=== PATIENT | male | born 1965 | race Hispanic/Latino ===

== ENCOUNTER 2018-01-04 12:46 | Inpatient (IN) | payer OTHER ==
[2018-01-04] MEDS ORDERED: VANCOMYCIN 500 MG in NA CHLORIDE 0.9% 100 ML IVPB ONE (14:00)
[2018-01-04 14:17] LABS: Absolute Monocytes 0.4 K/uL (0.1-1.3); Absolute Neutrophil 4.6 K/uL (1.8-8.0); Basophils % 0.8 % (0-1.3); Eosinophils % 0.5 % (0-4.4); Hematocrit 35.8 % (39.6-49.0); Lymphocytes % 16.3 % (15.3-44.8); MCV 66.5 fL (80-100); MPV 8.7 fL (7.6-11.3); Monocytes % 7.1 % (3.3-12.3); RBC Red Blood Cell Count 5.39 M/uL (4.33-5.43)
--- NOTE | 2018-01-04 14:18 | RAD REPORT ---
EXAM DESCRIPTION: US - Extremity Nonvascular Limited - 01/04/2018 2:10 pm CLINICAL HISTORY: Pain;Swelling COMPARISON: No comparisons TECHNIQUE: Real-time sonographic evaluation of the area of interest was performed. FINDINGS: Left posterior elbow soft tissue ultrasound was performed. Significant subcutaneous edema is present in the region. No abscess is identified.
[2018-01-04 14:31] LABS: Potassium 3.6 mmol/L (3.5-5.1)
--- NOTE | 2018-01-04 14:50 | EDPHYS ---
Physician Documentation [facility] Name: Tai Aguirre Age: 52 yrs Sex: Male : 1965 Arrival Date: 01/04/2018 Time: 12:49 Bed 24 Private MD: ED Physician Moe Akins HPI: 01/04 14:51 This 52 yrs old Male presents to ER via Ambulatory with complaints of Elbow snw Swelling. 14:51 Onset: The symptoms/episode began/occurred suddenly, 2 day(s) ago, and became worse and snw became persistent. Associated signs and symptoms: The patient has no apparent associated signs or symptoms, Pertinent negatives: fever. Modifying factors: the patient symptoms are aggravated by movement. The patient has not experienced similar symptoms in the past. The patient has not recently seen a physician. Historical: - Allergies: 12:52 Clindamycin; sv - PMHx: 12:52 Diabetes - IDDM; Hypertension; sv - PSHx: 12:52 None; sv - Immunization history:: Adult Immunizations up to date. - Social history:: Smoking status: Patient/guardian denies using tobacco. - Ebola Screening: : No symptoms or risks identified at this time. ROS: 14:50 Constitutional: Negative for fever, chills, and weight loss, Eyes: Negative for injury, snw pain, redness, and discharge, ENT: Negative for injury, pain, and discharge, Neck: Negative for injury, pain, and swelling, Cardiovascular: Negative for chest pain, palpitations, and edema, Respiratory: Negative for shortness of breath, cough, wheezing, and pleuritic chest pain, Abdomen/GI: Negative for abdominal pain, nausea, vomiting, diarrhea, and constipation, Back: Negative for injury and pain, : Negative for injury, bleeding, discharge, and swelling, Neuro: Negative for headache, weakness, numbness, tingling, and seizure, Psych: Negative for depression, anxiety, suicide ideation, homicidal ideation, and hallucinations. 14:50 Skin: Positive for erythema, swelling, tenderness over posterior left elbow. Exam: 14:49 Constitutional: This is a well developed, well nourished patient who is awake, alert, snw and in no acute distress. Head/Face: Normocephalic, atraumatic. Eyes: Pupils equal round and reactive to light, extra-ocular motions intact. Lids and lashes normal. Conjunctiva and sclera are non-icteric and not injected. Cornea within normal limits. Periorbital areas with no swelling, redness, or edema. ENT: Nares patent. No nasal discharge, no septal abnormalities noted. Tympanic membranes are normal and external auditory canals are clear. Oropharynx with no redness, swelling, or masses, exudates, or evidence of obstruction, uvula midline. Mucous membranes moist. Neck: Trachea midline, no thyromegaly or masses palpated, and no cervical lymphadenopathy. Supple, full range of motion without nuchal rigidity, or vertebral point tenderness. No Meningismus. Chest/axilla: Normal chest wall appearance and motion. Nontender with no deformity. No lesions are appreciated. Cardiovascular: Regular rate and rhythm with a normal S1 and S2. No gallops, murmurs, or rubs. Normal PMI, no JVD. No pulse deficits. Respiratory: Lungs have equal breath sounds bilaterally, clear to auscultation and percussion. No rales, rhonchi or wheezes noted. No increased work of breathing, no retractions or nasal flaring. Abdomen/GI: Soft, non-tender, with normal bowel sounds. No distension or tympany. No guarding or rebound. No evidence of tenderness throughout. Back: No spinal tenderness. No costovertebral tenderness. Full range of motion. Neuro: Awake and alert, GCS 15, oriented to person, place, time, and situation. Cranial nerves II-XII grossly intact. Motor strength 5/5 in all extremities. Sensory grossly intact. Cerebellar exam normal. Normal gait. Psych: Awake, alert, with orientation to person, place and time. Behavior, mood, and affect are within normal limits. 14:49 Skin: Appearance: normal except for affected area, cellulitis, that is moderate, induration, that is mild is noted, located on the left elbow. Vital Signs: 12:52 BP 135 / 86; Pulse 99; Resp 18; Temp 99.7; Pulse Ox 99% ; Weight 75.3 kg; Height 5 ft. sv 6 in. (167.64 cm); Pain 8/10; 13:03 BP 128 / 78; Pulse 96; Resp 17; Temp 98.6(O); Pulse Ox 100% on R/A; mh5 13:54 BP 128 / 78; Pulse 82; Resp 18; Pulse Ox 99% on R/A; Pain 8/10; ed1 14:42 BP 130 / 90; Pulse 80; Resp 17; Pulse Ox 99% on R/A; mh5 17:14 BP 130 / 78; Pulse 79; Resp 18; Temp 97.3(O); Pulse Ox 100% on R/A; Pain 3/10; ed1 12:52 Body Mass Index 26.79 (75.30 kg, 167.64 cm) sv MDM: 12:54 Patient medically screened. snw 14:44 Data reviewed: vital signs, nurses notes, lab test result(s). Data interpreted: Pulse snw oximetry: on room air is 99 %. Interpretation: normal. Counseling: I had a detailed discussion with the patient and/or guardian regarding: the historical points, exam findings, and any diagnostic results supporting the discharge/admit diagnosis, the presence of at least one elevated blood pressure reading (>120/80) during this emergency department visit, lab results, radiology results, the need for further work-up and treatment in the hospital. Physician consultation: Dwayne Wong MD was called at 14:46, was contacted at 14:46, regarding admission, to the medical/surgical unit. Special discussion:. 01/04 13:33 Order name: CBC with Diff; Complete Time: 15:07 snw 08 13:33 Order name: Chem 7; Complete Time: 14:37 snw 01/04 13:33 Order name: ESR; Complete Time: 15:07 snw 01/04 13:33 Order name: Blood Culture Adult (2) snw 01/04 14:22 Order name: CBC Smear Scan; Complete Time: 15:07 EDMS 01/04 15:10 Order name: Vancomycin Level Trough EDMS 01/04 13:33 Order name: US Extrmty Nonvasular Limited; Complete Time: 14:20 snw 01/04 17:23 Order name: Hemoglobin A1c; Complete Time: 17:25 EDMS Administered Medications: Discontinued: vancoMYCIN 500 mg IVPB once over 1 hrs 14:12 Drug: vancoMYCIN 500 mg Route: IVPB; Infused Over: 1 hrs; Site: right antecubital; ed1 15:03 Follow up: Response: No adverse reaction; IV Status: Order to discontinue infusion; IV ed1 Intake: 76.1ml 15:04 Drug: NS 0.9% 1000 ml Route: IV; Rate: 1 bolus; Site: right antecubital; ed1 17:27 Follow up: IV Status: Completed infusion; IV Intake: 1000ml ed1 15:06 Drug: Insulin Regular Human 10 units {Co-Signature: ed1 (Zoe Stone TOOL CLERK).} Route: IVP; ss Site: right antecubital; 15:43 Follow up: Response: No adverse reaction; Blood sugar is lowered ed1 15:06 Drug: Doxycycline 100 mg Route: PO; ss 15:43 Follow up: Response: No adverse reaction ed1 15:06 Drug: fentaNYL (PF) 50 mcg Route: IVP; Site: right antecubital; ss 15:42 Follow up: Response: No adverse reaction; Pain is decreased ed1 15:56 Drug: vancoMYCIN 1 grams Route: IVPB; Infused Over: 2 hrs; Site: right antecubital; ed1 17:27 Follow up: Response: No adverse reaction; IV Status: Completed infusion; IV Intake: ed1 250ml Point of Care Testing: Blood Glucose: 15:42 Blood Glucose: 234 mg/dL; ed1 Ranges: Critical Glucose Levels:Adult <50 mg/dl or >400 mg/dl <40 mg/dl or >180 mg/dl Disposition: 01/05 10:36 Co-signature as Attending Physician, Moe Akins MD I agree with the assessment and kdr plan of care. Disposition: 01/04/18 14:49 Hospitalization ordered by Dwayne Wong for Inpatient Admission. Preliminary diagnosis are Cellulitis of left upper limb, Diabetes mellitus due to underlying condition with hyperglycemia. - Bed requested for Telemetry/MedSurg (Inpatient). - Status is Inpatient Admission. ed1 - Condition is Stable. - Problem is new. - Symptoms are unchanged. UTI on Admission? No Signatures: Dispatcher [employer] EDMS Maryse Boyce RN Jacqueline Guerra RN RN dw Rittger, Kevin, MD MD kdr Therrien, Shelly, PASTE WORKER-C PASTE WORKER-Roryw Marina Patel RN RN ss Chase, Zoe, TOOL CLERK TOOL CLERK ed1 Zoe Stone TOOL CLERK ed1 Corrections: (The following items were deleted from the chart) 01/04 16:46 14:49 Hospitalization Ordered by Dwayne Wong MD for Inpatient Admission. Preliminary dw diagnosis is Cellulitis of left upper limb; Diabetes mellitus due to underlying condition with hyperglycemia. Bed requested for Telemetry/MedSurg (Inpatient). Status is Inpatient Admission. Condition is Stable. Problem is new. Symptoms are unchanged. UTI on Admission? No. snw 17:28 16:46 01/04/2018 14:49 Hospitalization Ordered by Dwayne Wong MD for Inpatient ed1 Admission. Preliminary diagnosis is Cellulitis of left upper limb; Diabetes mellitus due to underlying condition with hyperglycemia. Bed requested for Telemetry/MedSurg (Inpatient). Status is Inpatient Admission. Condition is Stable. Problem is new. Symptoms are unchanged. UTI on Admission? No. dw
--- NOTE | 2018-01-04 14:50 | ER ---
Nurse's Notes [facility] Name: Tai Aguirre Age: 52 yrs Sex: Male : 1965 Arrival Date: 01/04/2018 Time: 12:49 Bed 24 Private MD: Diagnosis: Cellulitis of left upper limb;Diabetes mellitus due to underlying condition with hyperglycemia Presentation: 01/04 12:51 Presenting complaint: Patient states: left elbow pain, swelling and redness x 2 days. sv Transition of care: patient was not received from another setting of care. Onset of symptoms was January 02, 2018. Care prior to arrival: None. 12:51 Method Of Arrival: Ambulatory sv 12:51 Acuity: NATALIA 3 sv 12:54 Risk Assessment: Do you want to hurt yourself or someone else? Patient reports no ed1 desire to harm self or others. Initial Sepsis Screen: Does the patient meet any 2 criteria? No. Patient's initial sepsis screen is negative. Does the patient have a suspected source of infection? No. Patient's initial sepsis screen is negative. Historical: - Allergies: 12:52 Clindamycin; sv - PMHx: 12:52 Diabetes - IDDM; Hypertension; sv - PSHx: 12:52 None; sv - Immunization history:: Adult Immunizations up to date. - Social history:: Smoking status: Patient/guardian denies using tobacco. - Ebola Screening: : No symptoms or risks identified at this time. Screenin:54 Abuse screen: Denies threats or abuse. Denies injuries from another. Nutritional ed1 screening: No deficits noted. Tuberculosis screening: No symptoms or risk factors identified. Fall Risk None identified. Assessment: 12:54 General: Appears in no apparent distress. Behavior is calm, cooperative. Pain: ed1 Complains of pain in left elbow Pain does not radiate. Pain currently is 8 out of 10 on a pain scale. Quality of pain is described as aching, throbbing, Pain began 2-3 days ago. Is continuous, Current management - is no interventions. Neuro: Level of Consciousness is awake, alert, obeys commands, Oriented to person, place, time, situation. Cardiovascular: Denies chest pain, Heart tones S1 S2 present. Respiratory: Airway is patent Respiratory effort is even, unlabored, Respiratory pattern is regular, symmetrical, Breath sounds are clear bilaterally. GI: No signs and/or symptoms were reported involving the gastrointestinal system. : No signs and/or symptoms were reported regarding the genitourinary system. EENT: No signs and/or symptoms were reported regarding the EENT system. Derm: Skin is pink, warm \T\ dry. Musculoskeletal: Circulation, motion, and sensation intact. Capillary refill < 3 seconds, in bilateral fingers. Range of motion: limited in left elbow Swelling present in left elbow. 12:56 General: The previous assessment is accurate. Call light remains within reach. . ss 13:54 Reassessment: Patient appears in no apparent distress at this time. No changes from ed1 previously documented assessment. Patient and/or family updated on plan of care and expected duration. Pain level reassessed. Patient is alert, oriented x 3, equal unlabored respirations, skin warm/dry/pink. Patient states symptoms have not improved. Vital Signs: 12:52 BP 135 / 86; Pulse 99; Resp 18; Temp 99.7; Pulse Ox 99% ; Weight 75.3 kg; Height 5 ft. sv 6 in. (167.64 cm); Pain 8/10; 13:03 BP 128 / 78; Pulse 96; Resp 17; Temp 98.6(O); Pulse Ox 100% on R/A; mh5 13:54 BP 128 / 78; Pulse 82; Resp 18; Pulse Ox 99% on R/A; Pain 8/10; ed1 14:42 BP 130 / 90; Pulse 80; Resp 17; Pulse Ox 99% on R/A; mh5 17:14 BP 130 / 78; Pulse 79; Resp 18; Temp 97.3(O); Pulse Ox 100% on R/A; Pain 3/10; ed1 12:52 Body Mass Index 26.79 (75.30 kg, 167.64 cm) sv ED Course: 12:49 Patient arrived in ED. as 12:51 Triage completed. sv 12:52 Arm band placed on right wrist. sv 12:54 [facility] Over[facility] FNP-C [facility]. snw 12:54 Moe Akins MD is Attending Physician. snw 12:54 Zoe Stone LVN is Primary Nurse. ed1 12:54 Awaiting ED provider evaluation. ed1 12:54 Patient has correct armband on for positive identification. Bed in low position. Call ed1 light in reach. 13:05 Pulse ox on. NIBP on. mh5 13:49 Initial lab(s) drawn, by me, sent to lab. First set of blood cultures drawn by me. ed1 Inserted saline lock: 20 gauge in right antecubital area, using aseptic technique. Blood collected. 14:02 Patient taken to ultrasound. via wheelchair. hr 14:11 US Extrmty Nonvasular Limited In Process Unspecified. EDMS 14:12 Second set of blood cultures drawn by me. ed1 14:35 Notified Nurse Practitioner and/or Physician Lining Sewer of a critical lab result(s), aj1 Glucose 487. 14:46 Dwayne Wong MD is Hospitalizing Provider. snw 15:56 Awaiting bed assignment. ed1 17:02 Body fluid aspiration. ed1 17:26 Patient admitted, IV remains in place. intact, No redness/swelling at site. ed1 Administered Medications: Discontinued: vancoMYCIN 500 mg IVPB once over 1 hrs 14:12 Drug: vancoMYCIN 500 mg Route: IVPB; Infused Over: 1 hrs; Site: right antecubital; ed1 15:03 Follow up: Response: No adverse reaction; IV Status: Order to discontinue infusion; IV ed1 Intake: 76.1ml 15:04 Drug: NS 0.9% 1000 ml Route: IV; Rate: 1 bolus; Site: right antecubital; ed1 17:27 Follow up: IV Status: Completed infusion; IV Intake: 1000ml ed1 15:06 Drug: Insulin Regular Human 10 units {Co-Signature: ed1 (Zoe Stone LVN).} Route: IVP; ss Site: right antecubital; 15:43 Follow up: Response: No adverse reaction; Blood sugar is lowered ed1 15:06 Drug: Doxycycline 100 mg Route: PO; ss 15:43 Follow up: Response: No adverse reaction ed1 15:06 Drug: fentaNYL (PF) 50 mcg Route: IVP; Site: right antecubital; ss 15:42 Follow up: Response: No adverse reaction; Pain is decreased ed1 15:56 Drug: vancoMYCIN 1 grams Route: IVPB; Infused Over: 2 hrs; Site: right antecubital; ed1 17:27 Follow up: Response: No adverse reaction; IV Status: Completed infusion; IV Intake: ed1 250ml Point of Care Testing: Blood Glucose: 15:42 Blood Glucose: 234 mg/dL; ed1 Ranges: Intake: 15:03 IV: 76ml; Total: 76ml. ed1 17:27 IV: 250ml; Total: 326ml. ed1 17:27 IV: 1000ml; Total: 1326ml. ed1 Outcome: 14:49 Decision to Hospitalize by Provider. snw 17:26 Admitted to Med/surg accompanied by tech, family with patient, via wheelchair, room ed1 207, with chart, Report called to GANESH Pelaez 17:26 Condition: stable 17:26 Discharge instructions given to patient, Instructed on the need for admit, Demonstrated understanding of instructions. 17:28 Patient left the ED. ed1 Signatures: Dispatcher [employer] EDMS Shraddha Garcia RN RN aj1 Maryse Boyce RN RN sv Rosa Overton, GEOLOGICAL SCOUT-C GEOLOGICAL SCOUT-Csnw La Nena Savage Amelia as Smirch, Shelby, Zoe Watson RN, INVESTIGATOR INTERNAL AFFAIRS INVESTIGATOR INTERNAL AFFAIRS ed1 Mahi [facility] Zoe Stone INVESTIGATOR INTERNAL AFFAIRS ed1 Corrections: (The following items were deleted from the chart) 14:12 14:12 Second set of blood cultures drawn ed1 ed1
[2018-01-04] MEDS ORDERED: INSULIN -REGULAR HUMAN 50 UNIT/0.5 ML ML ONE (14:59)
[2018-01-04] MEDS ORDERED: DOXYCYCLINE 100 MG CAP PO ONE (15:00)
[2018-01-04] MEDS ORDERED: NA CHLORIDE 0.9% 1,000 ML ONE (15:00)
[2018-01-04] MEDS ORDERED: FENTANYL CITR 100 MCG/2 ML ONE (15:00)
[2018-01-04 15:02] LABS: Platelet Estimate ADEQ; Urine White Blood Cell Casts OK
[2018-01-04 15:03] LABS: Blood Morphology Comment NOTED (NOT SEEN); Hypochromasia 1+; Stomatocytes 1+
[2018-01-04] MEDS ORDERED: ONDANSETRON 4 MG/2 ML VIAL IV PRN (15:14)
[2018-01-04] MEDS ORDERED: VANCOMYCIN/NS 1 gm 1 GM/250 ML BAG IV ONE (16:00)
[2018-01-04] MEDS ORDERED: BUPIVACAINE 0.5% PF 10 ML VIAL ONE (16:33)
[2018-01-04] MEDS: NA CHLORIDE 0.9% 1,000 ML IV SCH (17:48)
[2018-01-04] MEDS: INSULIN -REGULAR HUMAN 50 UNIT/0.5 ML ML SQ SCH ×2 (17:48→20:44)
[2018-01-04] MEDS: ACETAMINOPHEN 500 MG TAB PO PRN ×2 (17:49→22:59)
[2018-01-04] MEDS: ENOXAPARIN 40 MG/0.4 ML SQ SCH (17:49)
[2018-01-04] MEDS: PIPER/TAZO/NS 3.375gm 3.375 GM/100 ML BAG IVPB SCH (17:55)
[2018-01-04 19:23] LABS: Urine Appearance CLEAR; Urine Bilirubin NEGATIVE (NEG); Urine Blood NEGATIVE (NEG); Urine Color YELLOW; Urine Glucose 3+ (NEG); Urine Protein NEGATIVE (NEG)
[2018-01-04 19:30] LABS: Urine Microscopic Reflex NO UMIC
[2018-01-04] MEDS ORDERED: VANCOMYCIN 1GM/D5W 200 ML IV SCH (21:00)
[2018-01-04] MEDS: MORPHINE 2 MG/ML SYR IV PRN (22:56)
--- NOTE | 2018-01-05 00:46 | HP ---
Date of Admission: 01/04/2018 Chief Complaint: Elbow redness on the left. Primary Care Physician: Dr. Curt Salgado. Consultants: Dr. Villela with Orthopedics. History Of Present Illness: The patient is a 52-year-old male with past medical history of diabetes, hypertension, and hyperlipidemia, who comes in with a 2-day episode of redness and swelling of the l eft elbow after cleaning his garage and possible insect bite. The patient states that he had some re dness and subjective fever and some chills. No nausea, vomiting, chest pain, shortness of breath. T he patient's symptoms are constant, moderate, progressively worsening. Comes into the ER for further evaluation. Upon arrival, he had a normal white count. Glucose level was elevated at 47. The ruben ent was started on IV antibiotics and referred for admission. Extremity ultrasound was done, which s howed some swelling, but no abscess. Past Medical History: Hypertension, hyperlipidemia, and diabetes. Past Surgical History: None. Social History: The patient denies any tobacco use. Does drink alcohol occasionally. No illicit dr ug use. The patient is currently employed. Family History: Positive for diabetes and congestive heart failure. Allergies: TO CLINDAMYCIN, CAUSES RASH. Review of Systems: An 11-point systems reviewed, negative except as per HPI. Physical Examination: Vital Signs: Blood pressure 135/86, pulse 99, respirations 18, temperature 99.7, O2 100% on room air . General: Awake, alert, oriented x3. Some mild distress. HEENT: Normocephalic, atraumatic. PERRLA, EOMI. Moist mucous membranes. Oropharynx is clear. Nor mal dentition. Conjunctivae anicteric. Neck: Supple. No JVD. Trachea midline. CV: S1, S2. No murmurs. Regular rate and rhythm. Peripheral pulses present bilaterally. Respiratory: Clear to auscultation bilaterally. No wheezing. No stridor. No use of accessory musc les. Gastrointestinal: Abdomen is soft, nontender, nondistended. Positive bowel sounds. No guarding or rigidity. Extremities: No clubbing, cyanosis. Edema in the left elbow. Skin: The patient has erythema of the left elbow and some surrounding swelling. Neuro: Cranial nerves 2 through 12 intact grossly. No neurological deficit. Speech is normal. Str ength is 5/5 bilateral upper and lower extremities. Psych: Mood is okay. Affect is full. Insight and judgment are good. Laboratory Data: Sodium 131, potassium 3.6, chloride 95, CO2 27, BUN 19, creatinine 1.2, glucose 187 , calcium 8.7. WBC 6.1, H and H 11.3 and 35.8, platelets 271, neutrophils 75%. Ultrasound of the el bow shows left posterior elbow soft tissue edema, subcutaneous edema. No abscess. Assessment And Plan: A 52-year-old male with: 1.Left elbow cellulitis, rule out joint infection. Dr. Villela has been consulted. He will do bedsi de synovial fluid tap. Blood cultures have been sent out. We will start him on IV antibiotics and f ollow up on culture results. 2.Diabetes mellitus type 2, insulin requiring with hyperglycemia, uncontrolled. We will obtain hemo globin A1c. The patient has received 10 units of insulin in the ER. His blood sugars have improved. We will continue sliding scale insulin and resume home medications. The patient states he has been out of his medications for the past 3 days. 3.Essential hypertension, stable. We will resume home medications as appropriate. 4.Hyperlipidemia. Continue statin. 5.Gastrointestinal and deep venous thrombosis prophylaxis with PPI and SCDs, and ambulation. Plan: Admit the patient to Med-Surg, place as inpatient. VALE Voice ID: [id number]
[2018-01-05] MEDS: PIPER/TAZO/NS 3.375gm 3.375 GM/100 ML BAG IVPB SCH ×3 (00:59→17:23)
[2018-01-05] MEDS: NA CHLORIDE 0.9% 1,000 ML IV SCH ×4 (00:59→23:31)
--- NOTE | 2018-01-05 02:11 | PREOPHP ---
Date of Admission: 01/04/2018 History Of Present Illness: This 52-year-old male, [id number] diabetic, presented with a 2-day history to the emergency room of having cellulitis on the posterior aspect of the left elbow. The patient denies the presence of any lesion or injury to the arm. He has no history of fever or chills and has had no treatment prior to presentation. Past Medical History: The patient has allergy to clindamycin. His medical illnesses include insulin-dependent diabetes mellitus, hypertension. No history of previous surgical treatment. The patient's immunizations are up to date. Social History: He denies using tobacco. Review of Systems: Noncontributory. Physical Examination: Vital Signs: Stable with blood pressure 130/78, pulse 80, respirations 18, temperature 97.3, pulse oximeter 100% on room air, body mass index 26.79. General: This is a well-nourished, well-developed 52-year-old male. HEENT: Within normal limits. Neck: Supple. Chest: Clear to auscultation. Heart: Regular rate and rhythm. Abdomen: Soft and nontender. Active bowel sounds are present. Genital: Deferred. Rectal: Deferred. Extremities: The left upper extremity has erythema and edema around the olecranon and somewhat wider extended into the anterior posterior forearm. A focal area of edema was palpated just radial to the olecranon. This area was prepped with chlorhexidine and alcohol. 3 mL of 0.5% Marcaine were injected into the subcutaneous tissue. Then, aspiration with the 10 cc syringe produced drops of fluid. This fluid was then placed in culturettes for both aerobic and anaerobic cultures and Gram stain. The patient had already been started on vancomycin 500 mg test dose at 1412 and then 1 g of vancomycin at 1556 and oral tablet of 100 mg doxycycline was given at 1543. The aspiration for culture and Gram stain was done at 1702. The patient's lab work showed a white blood cell count of 6.1, 75% neutrophils, hemoglobin was 11.3. Sodium was low at 131, glomerular filtration rate was 64. Glucose was 487. A1c was 10.6. Imaging: Ultrasound nonvascular was done of the posterior elbow and reported as showing significant subcutaneous edema present on left elbow posterior soft tissue. Assessment: Cellulitis, left elbow olecranon bursa and subcutaneous tissue. Plan: Aspiration was an attempt to identify pathogen of the pathogen involved even though antibiotics had already been given starting approximately 3 hours before consultation and aspiration for Gram stain and culture of body fluid. Recommendation is for continued antibiotic therapy as started as there is no focal area of fluid accumulation that would qualify for I&D effort at this time. The patient will be followed, assessing daily for collections of fluid that could be aspirated or treated with incision and drainage. CHRIS/FREEMAN Voice ID: [id number] [id number]
[2018-01-05] MEDS: MORPHINE 2 MG/ML SYR IV PRN ×4 (03:02→23:26)
[2018-01-05 05:00] LABS: Absolute Monocytes 0.6 K/uL (0.1-1.3); Absolute Neutrophil 5.3 K/uL (1.8-8.0); Basophils % 2.8 % (0-1.3); Hematocrit 33.6 % (39.6-49.0); Lymphocytes % 24.2 % (15.3-44.8); MCH 21.7 pg (27.0-35.0); MCV 66.7 fL (80-100); Monocytes % 7.8 % (3.3-12.3); RBC Red Blood Cell Count 5.04 M/uL (4.33-5.43)
[2018-01-05 05:22] LABS: Albumin 2.9 g/dL (3.4-5.0); Bilirubin Total 0.3 mg/dL (0.2-1.0); Potassium 3.5 mmol/L (3.5-5.1); Protein, Total 6.7 g/dL (6.4-8.2)
[2018-01-05] MEDS: INSULIN DETEMIR 100 UNIT/1 ML INSULIN SQ SCH ×2 (08:38→21:10)
[2018-01-05] MEDS: hydroCHLOROthiazide 12.5 MG CAP PO SCH ×2 (08:42→21:07)
[2018-01-05] MEDS: CARVEDILOL 12.5 MG TAB PO SCH ×2 (08:43→21:06)
[2018-01-05] MEDS: LISINOPRIL 20 MG TAB PO SCH ×2 (08:43→21:08)
[2018-01-05] MEDS: INSULIN -REGULAR HUMAN 50 UNIT/0.5 ML ML SQ SCH ×7 (08:55→21:09)
[2018-01-05] MEDS ORDERED: HOME MED 1 EA UNK (Lisinopril/Hydrochlorothiazide [Lisinopril-Hctz 20-12.5 Mg Tab] 1 EACH) PO SCH (09:00)
[2018-01-05] MEDS: VANCOMYCIN 1.5 GM in NA CHLORIDE 0.9% 500 ML IVPB SCH (11:32)
[2018-01-05] MEDS: HYDROCODONE/APAP 7.5/325 MG TAB PO PRN ×2 (11:34→21:07)
--- NOTE | 2018-01-05 13:13 | PN ---
Date of Progress Note: 01/05/2018 Subjective: The patient is seen and examined. Chart reviewed and case discussed with RN and Dr. Morrison son. The patient states he is doing about the same, still having some pain in his elbow. Redness, h owever, has improved. No fever or chills overnight. Review of Systems: Negative except as above. Medications: List reviewed. Physical Examination: Vital Signs: Temperature 97.2, heart rate 81, blood pressure 162/82, respirations 16, O2 100% on andrade m air. General: Awake, alert, oriented x3, in some mild distress due to pain. CV: S1, S2. Regular rate and rhythm. Peripheral pulses present. Respiratory: Moving air well bilaterally. No wheezing or stridor. No use of accessory muscles. Gastrointestinal: Abdomen is soft, nontender, nondistended. Positive bowel sounds. Extremities: No clubbing, cyanosis. Mild edema in the left upper extremity. Skin: The patient has erythema of the left elbow and surrounding area. Some induration, improving. Neurologic: Nonfocal. Laboratory Data: Sodium 134, potassium 3.5, chloride 98, CO2 28, BUN 19, creatinine 1.1, glucose 400 , calcium 7.9. Hemoglobin A1c 10.6%. WBC 8.2, H and H are 11 and 33.6, platelets 243. Body fluid G magen stain, no WBCs or organisms seen. Culture preliminarily shows 3+ staph-coagulase positive, likel y Staph aureus. Blood cultures are pending. Assessment And Plan: A 52-year-old male with: 1.Left elbow cellulitis with possible joint infection with Staph aureus. Sensitivity is pending. W e will continue on broad-spectrum IV antibiotics. Appreciate Dr. Villela's input. Blood cultures neg ative to date. 2.Diabetes mellitus type 2, insulin requiring with hyperglycemia, uncontrolled. Hemoglobin A1c is 1 0.6%. Continue home dose of insulin. Continue sliding scale. The patient has been out of his medic ations recently. We will refill on discharge. 3.Essential hypertension, stable. 4.Hyperlipidemia. Continue statin. 5.Gastrointestinal and deep venous thrombosis prophylaxis with PPI. We will add Lovenox when the pa tient at procedure yesterday. Plan: Follow up on cultures. /FREEMAN Voice ID: [id number] Report ID: [id number]
--- NOTE | 2018-01-05 15:05 | P.PN ---
Date of Service: 01/05/18 (HOSP DAY 1 HEADED FOR 2ND MN) S: PATIENT DECLARES PAIN ABOUT SAME YESTERDAY. GIVES ADDITIONAL HISTORY OF R GROIN ABSCESS AND RIGHT ELBOW ABSCESSES ALL WITH STAPH AUREUS REQUIRING I&Ds AND IV VANCOMYCIN. INDICATES DIRTY TATTOO NEEDLE STARTED PROBLEM YEARS AGO. O: PAIN 9, 2, 2, AND 8/10, AFEBRILE, VSS, WBC 8.2, 64%NEUT. GLUCOSE 234, 164 , 335, 400, 440, 366. BODY FLUID CULTURES 3+ STAPH COAGULASE POSITIVE, GRAM STAIN PENDING. EXAM OF RT. ARM SHOWS SAME CELLULITIS WITH WARMTH AND EDEMA LOCATIONS WITHOUT FLUID BALLOTMENT. PROM RUE 10* TO 115*, EQUAL TO AROM.
[2018-01-05] MEDS: ENOXAPARIN 40 MG/0.4 ML SQ SCH (17:23)
[2018-01-05] MEDS ORDERED: INSULIN GLARGINE 100 UNITS/ML SQ SCH (21:00)
[2018-01-05] MEDS: DOCUSATE NA 100 MG CAP PO SCH (21:07)
[2018-01-06] MEDS: PIPER/TAZO/NS 3.375gm 3.375 GM/100 ML BAG IVPB SCH ×3 (00:30→16:40)
[2018-01-06] MEDS: VANCOMYCIN 1.5 GM in NA CHLORIDE 0.9% 500 ML IVPB SCH ×2 (04:15→22:17)
[2018-01-06 05:02] LABS: Absolute Lymphocytes (CBC) 2.2 K/uL (0.7-4.9); Absolute Monocytes 0.6 K/uL (0.1-1.3); Absolute Neutrophil 3.7 K/uL (1.8-8.0); Basophils % 1.1 % (0-1.3); Eosinophils % 2.6 % (0-4.4); Hematocrit 31.6 % (39.6-49.0); Lymphocytes % 32.5 % (15.3-44.8); MCH 21.5 pg (27.0-35.0); MCV 66.6 fL (80-100); MPV 8.9 fL (7.6-11.3); Monocytes % 8.3 % (3.3-12.3); RBC Red Blood Cell Count 4.74 M/uL (4.33-5.43)
[2018-01-06 05:44] LABS: Albumin 2.6 g/dL (3.4-5.0); Bilirubin Total 0.2 mg/dL (0.2-1.0); Potassium 3.3 mmol/L (3.5-5.1); Protein, Total 6.2 g/dL (6.4-8.2)
[2018-01-06] MEDS: INSULIN -REGULAR HUMAN 50 UNIT/0.5 ML ML SQ SCH ×8 (07:30→21:19)
[2018-01-06] MEDS: NA CHLORIDE 0.9% 1,000 ML IV SCH ×2 (08:00→18:00)
[2018-01-06] MEDS: LISINOPRIL 20 MG TAB PO SCH ×2 (08:29→21:17)
[2018-01-06] MEDS: DOCUSATE NA 100 MG CAP PO SCH ×2 (08:29→21:18)
[2018-01-06] MEDS: CARVEDILOL 12.5 MG TAB PO SCH ×2 (08:30→21:18)
[2018-01-06] MEDS: hydroCHLOROthiazide 12.5 MG CAP PO SCH ×2 (08:31→21:17)
[2018-01-06] MEDS: INSULIN DETEMIR 100 UNIT/1 ML INSULIN SQ SCH ×2 (08:33→21:18)
[2018-01-06] MEDS: HYDROCODONE/APAP 7.5/325 MG TAB PO PRN ×2 (09:06→21:16)
--- NOTE | 2018-01-06 11:12 | P.PN ---
Date of Service: 01/06/18 S: PATIENT CONTINUES TO IMPROVE RANGE OF MOTION AND DECREASE EDEMA AND INFLAMMATION. O: PAIN 4, 4, 3, 8/10, AFEBRILE, VSS, WBC 6.6, 55%NEUT. GLUCOSE 202. BODY FLUID CULTURES 3+ STAPH COAGULASE POSITIVE, GRAM STAIN SHOWS 0-2 WBCs AND GRAM + COCCI IN CLUSTERS. STAPH AUREUS SENS TO ALL EXCEPT PEN & AMP. EXAM OF RT. ARM SHOWS DECREASED CELLULITIS WITHOUT WARMTH AND DECREASED EDEMA WITHOUT FLUID BALLOTMENT. ROM RUE 5* TO 125*.
--- NOTE | 2018-01-06 12:41 | PN ---
Subjective: Currently the patient is lying in bed. He looks comfortable but he continued to have le ft elbow pain with every movement. He think IV pain medication is wearing off fast. There were no f ever, no chills overnight. Review of Systems: Otherwise as below. Objective: Vital Signs: Blood pressure 126/68, respiratory rate 17, pulse 64, temp 97.1. General: The patient is alert and oriented x3. Does not look in any distress. HEENT: Atraumatic, normocephalic. PERRLA. Oral mucosa is moist. Neck: Supple. No JVD. No carotid bruits. Chest: Clear to auscultation. Good air entry. Heart: Regular rate and rhythm. S1, S2 normal. No gallop or murmur. Abdomen: Soft, nontender. No masses. No hepatosplenomegaly. Positive bowel sounds. Extremities: No clubbing, no cyanosis, or edema, neither in extremity today. Skin: Without erythema of the left elbow but slightly tender. Laboratory Data: Today showed CBC is normal except for hemoglobin 10.2. Chemistry was normal except for potassium 3.3. Glucose 186. Microbiology showed elbow culture positive for Staphylococcus reta us, which is sensitive to Bactrim, cefazolin, clindamycin. Assessment And Plan: 1.Left elbow cellulitis, joint infection with Staph aureus. Sensitivity showed no MRSA. The patien t was sensitive to clindamycin, cefazolin and Bactrim etc. Currently he is on IV antibiotic with Zos yn and vancomycin. We will continue IV antibiotics for 1 more day. As the patient continued to have pain, we will stop IV morphine and switch the patient to Toradol orally every 6 hours and hopefully tomorrow we will be able to discharge the patient home if his pain is well controlled, on 14 days of course of antibiotics. He will follow up with the Orthopedic as outpatient. 2.Type 2 diabetes mellitus. Still not well controlled. Hemoglobin A1c was 10.6, I will increase hi s morning dose of insulin from 25 to 30. 3.Hypertension, well controlled. 4.History of hyperlipidemia, on statin. 5.Gastrointestinal prophylaxis, deep venous thrombosis prophylaxis on Lovenox 40 once a day. 6.Pain not well controlled. We will switch him to Toradol orally. 7.Plan to discharge in a.m., hopefully pain well controlled. ANNAMARIA/FREEMAN Voice ID: [id number] Report ID: [id number]
[2018-01-06] MEDS: KETOROLAC 10 MG TAB PO PRN (12:47)
[2018-01-06] MEDS: ENOXAPARIN 40 MG/0.4 ML SQ SCH (16:41)
[2018-01-07] MEDS: PIPER/TAZO/NS 3.375gm 3.375 GM/100 ML BAG IVPB SCH ×2 (00:42→09:03)
[2018-01-07] MEDS: HYDROCODONE/APAP 7.5/325 MG TAB PO PRN (02:40)
[2018-01-07 05:23] LABS: Absolute Lymphocytes (CBC) 2.2 K/uL (0.7-4.9); Absolute Monocytes 0.5 K/uL (0.1-1.3); Absolute Neutrophil 3.3 K/uL (1.8-8.0); Basophils % 1.2 % (0-1.3); Eosinophils % 3.3 % (0-4.4); Hematocrit 32.1 % (39.6-49.0); Lymphocytes % 34.6 % (15.3-44.8); MCH 21.7 pg (27.0-35.0); MPV 8.6 fL (7.6-11.3); Monocytes % 7.9 % (3.3-12.3); RBC Red Blood Cell Count 4.85 M/uL (4.33-5.43)
[2018-01-07 05:25] LABS: MCV 66.2 fL (80-100)
[2018-01-07 05:41] LABS: Albumin 2.7 g/dL (3.4-5.0); Bilirubin Total 0.1 mg/dL (0.2-1.0); Potassium 3.4 mmol/L (3.5-5.1); Protein, Total 6.4 g/dL (6.4-8.2)
[2018-01-07] MEDS: NA CHLORIDE 0.9% 1,000 ML IV SCH (06:08)
[2018-01-07] MEDS: INSULIN -REGULAR HUMAN 50 UNIT/0.5 ML ML SQ SCH ×4 (07:30→11:30)
[2018-01-07] MEDS ORDERED: INSULIN DETEMIR 100 UNIT/1 ML INSULIN SQ SCH (08:00)
[2018-01-07] MEDS: KETOROLAC 10 MG TAB PO PRN (09:05)
[2018-01-07] MEDS: DOCUSATE NA 100 MG CAP PO SCH (09:07)
[2018-01-07] MEDS: hydroCHLOROthiazide 12.5 MG CAP PO SCH (09:12)
[2018-01-07] MEDS: LISINOPRIL 20 MG TAB PO SCH (09:13)
[2018-01-07] MEDS: CARVEDILOL 12.5 MG TAB PO SCH (09:14)
[2018-01-07] MEDS ORDERED: VANCOMYCIN 1.5 GM in NA CHLORIDE 0.9% 500 ML IVPB SCH (10:00)
--- NOTE | 2018-01-07 11:44 | P.PN ---
Date of Service: 01/07/18 S: PATIENT CONTINUES TO IMPROVE RANGE OF MOTION WITH DECREASED EDEMA AND INFLAMMATION. O: PAIN 5, 4, 8, 0/10, AFEBRILE, VSS, WBC 6.2, 53%NEUT. GLUCOSE 220. BODY FLUID CULTURES 3+ STAPH COAGULASE POSITIVE, GRAM STAIN SHOWS 0-2 WBCs AND GRAM + COCCI IN CLUSTERS. STAPH AUREUS SENS TO ALL EXCEPT PEN & AMP. EXAM OF RT. ARM SHOWS DECREASED EDEMA WITHOUT FLUID BALLOTMENT. ROM RUE 0* TO 130*. A: PATIENT MAKING PROGRESS DAILY. P: PATIENT TO BE DISCHARGED ON P.O. ABX TODAY. F/U IF DESIRED MY OFFICE IN 7- 10 D OR PRN INCREASING SYMPTOMS.
--- NOTE | 2018-01-07 16:43 | DS ---
Date of Discharge: 01/07/2018 Nurse Charge Rn: Dr. Villela. Procedure: Ultrasound of the left upper extremity, showed significant subcutaneous edema without abs cess, elbow joint aspiration. For history of present illness, please refer to Dr. Wong's note. Hospital Course: Initially, the patient presented with history of 2 days' of progressive redness and swelling of his left elbow after cleaning his crotch and reported insect bite. In the emergency andrade m, the patient was evaluated and found to have normal white blood cells. Doppler showed subcutaneous swelling, and Orthopedic consult requested. Dr. Villela did bedside synovial fluid tap. Blood cultu re done and was negative, but the fluid tap was positive for Staph aureus, coag-negative, +3. The venkatesh hanks was maintained on vancomycin while inpatient and was switched to Augmentin twice a day for 14 d ays upon discharge. His pain subsided with pain medications and today he is feeling much better. Dr Marisol Villela okay for the patient's discharge and followup with him in the office as outpatient. The cornel portillo was discharged in stable condition. He was maintained on his medications for diabetes and hyper tension while inpatient. Discharge Condition: Stable. Discharge Diet: 1800 ADA cardiac. Discharge Activity: As tolerated. Discharge Followup: Follow up with Dr. Villela in 1 week. Follow up with his primary care physician in 1 week. Physical Examination On Discharge: Vital Signs: Blood pressure is 110/62, respiratory rate 18, puls e 62, temperature 98.3. General: He is alert and oriented x3. Does not look in any distress. HEENT: Atraumatic, normocephalic. PERRLA. Oral mucosa is moist. Neck: Supple. No JVD. No carotid bruits. Chest: Clear to auscultation. Good air entry. Heart: Regular rate and rhythm. S1, S2 normal. No gallop. Abdomen: Soft, nontender. No masses. No hepatosplenomegaly. Positive bowel sounds. Obese. Extremities: No clubbing, cyanosis, or edema. Skin: Left elbow without much tenderness. No erythema. No swelling anymore. Medications At Discharge: Augmentin 875/125 one tablet twice a day; Toradol 10 mg as needed every 6 hours for pain; metformin 1000 mg twice a day; lisinopril/hydrochlorothiazide tablet combination, 1 t ablet twice a day; insulin glargine 25 units twice a day; insulin sliding scale before meals as befor e; Coreg 12.5 mg twice a day. ANNAMARIA/FREEMAN Voice ID: [id number] Report ID: [id number]
== END 2018-01-07 14:00 | disposition home or self-care (01) | DRG 549 ==
LOC: ER 12:46 → ERHOLD 15:15 → 2ND 17:20
PROVIDERS: ADMIT Family Medicine; ATTEND Internal Medicine
PROC: 0R9M3ZX Drainage of Left Elbow Joint, Percutaneous Approach, Diagnostic (ICD-10-PCS; principal; 2018-01-04)
DX: M00.022 Staphylococcal arthritis, left elbow (principal); L03.114 Cellulitis of left upper limb; E11.65 Type 2 diabetes mellitus with hyperglycemia; B95.61 Methicillin susceptible Staphylococcus aureus infection as the cause of diseases classified elsewhere; I10 Essential (primary) hypertension; E78.5 Hyperlipidemia, unspecified; Z79.4 Long term (current) use of insulin
CPT/HCPCS: 36415; 76882; 80048; 80053; 80202; 81003; 82962; 83036; 85025; 85652; 87040; 87070; 87075; 87077; 87186; 87205; 94760; 96361; 96365; 96366; 96375; 99285; J1650; J2270; J2405; J2543; J3010; J3370; J7030

== ENCOUNTER 2018-01-26 02:11 | Emergency (ER) | payer OTHER ==
[2018-01-26 02:51] LABS: Absolute Lymphocytes (CBC) 1.6 K/uL (0.7-4.9); Absolute Monocytes 0.4 K/uL (0.1-1.3); Basophils % 1.2 % (0-1.3); Eosinophils % 0.7 % (0-4.4); Hematocrit 34.4 % (39.6-49.0); MCH 21.6 pg (27.0-35.0); MPV 8.5 fL (7.6-11.3); Monocytes % 7.3 % (3.3-12.3); RBC Red Blood Cell Count 5.14 M/uL (4.33-5.43)
[2018-01-26 03:07] LABS: BUN Blood Urea Nitrogen 9 mg/dL (7-18); Bicarbonate 22 mmol/L (21-32); Glucose Level 208 mg/dL (74-106); Potassium 3.7 mmol/L (3.5-5.1); Sodium Level 140 mmol/L (136-145)
[2018-01-26 03:38] LABS: Urine Blood NEGATIVE (NEG); Urine Glucose 1+ (NEG); Urine Protein NEGATIVE (NEG); Urine Specific Gravity <1.005 (1.005-1.030)
[2018-01-26 03:41] LABS: Blood Morphology Comment NOTED (NOT SEEN); Hypochromasia 1+; Platelet Estimate ADEQ; Urine White Blood Cell Casts OK
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
== END 2018-01-26 04:31 | disposition left against medical advice (07) ==
LOC: ER 02:11
DX: S13.4XXA Sprain of ligaments of cervical spine, initial encounter (principal); S20.219A Contusion of unspecified front wall of thorax, initial encounter; S20.229A Contusion of unspecified back wall of thorax, initial encounter; V03.10XA Pedestrian on foot injured in collision with car, pick-up truck or van in traffic accident, initial encounter; Y93.01 Activity, walking, marching and hiking; Y92.89 Other specified places as the place of occurrence of the external cause
CPT/HCPCS: 36415; 70450; 71260; 72125; 74177; 80048; 81003; 85025; 99285; Q9967; 80076; 80307; 80320; 80329; 85610; 85730; 93005; 96360; J7030

== ENCOUNTER 2018-01-26 05:57 | Emergency (ER) | payer OTHER ==
[2018-01-26] MEDS ORDERED: ACT CHARCOAL/SORB 50 GM/240ML ONE (06:58)
[2018-01-26 07:10] LABS: Absolute Lymphocytes (CBC) 1.6 K/uL (0.7-4.9); Absolute Monocytes 0.3 K/uL (0.1-1.3); Absolute Neutrophil 2.5 K/uL (1.8-8.0); Eosinophils % 0.8 % (0-4.4); Hematocrit 35.6 % (39.6-49.0); MCH 21.1 pg (27.0-35.0); MCV 67.1 fL (80-100); MPV 8.6 fL (7.6-11.3); Monocytes % 7.1 % (3.3-12.3); RBC Red Blood Cell Count 5.31 M/uL (4.33-5.43)
[2018-01-26 07:19] LABS: Protime INR 1.17
[2018-01-26 07:23] LABS: Barbiturates NEGATIVE (NEGATIVE); Benzodiazepines NEGATIVE (NEGATIVE); Cocaine NEGATIVE (NEGATIVE); METHAMPHETAM NEGATIVE (NEGATIVE); Methadone NEGATIVE (NEGATIVE); Opiates NEGATIVE (NEGATIVE); Phencyclidine NEGATIVE (NEGATIVE); THC Cannibis NEGATIVE (NEGATIVE)
[2018-01-26 07:49] LABS: ALT/SGPT 20 U/L (12-78); AST/SGOT 16 U/L (15-37); Albumin 3.5 g/dL (3.4-5.0); Alkaline Phosphatase 75 U/L (45-117); BUN Blood Urea Nitrogen 9 mg/dL (7-18); Bicarbonate 25 mmol/L (21-32); Bilirubin Direct 0.1 mg/dL (0-0.2); Bilirubin Total 0.2 mg/dL (0.2-1.0); Glucose Level 189 mg/dL (74-106); Potassium 3.7 mmol/L (3.5-5.1); Protein, Total 7.4 g/dL (6.4-8.2); Sodium Level 139 mmol/L (136-145)
[2018-01-26 07:50] LABS: Alcohol Serum/Plasma 149 mg/dL (<3)
[2018-01-26] MEDS ORDERED: NA CHLORIDE 0.9% 1,000 ML ONE (08:05)
[2018-01-26 09:34] LABS: Urine Blood NEGATIVE (NEG); Urine Glucose 2+ (NEG); Urine Protein NEGATIVE (NEG); Urine pH 5.5 (5.0-7.0)
--- NOTE | 2018-01-26 14:19 | ER ---
Nurse's Notes [facility] Name: Tai Aguirre Age: 52 yrs Sex: Male : 1965 Arrival Date: 01/26/2018 Time: 05:59 Bed 19 Private MD: Diagnosis: Bipolar disorder;Adjustment disorder with depressed mood Presentation: 01/26 06:05 Presenting complaint: EMS states: Pt was seen at ED earlier, EMS reports they were ea called to pt's home due to possible OD. EMS reports they were called out by family member pt reported he took 5 tabs of trileptal. Transition of care: patient was not received from another setting of care. Onset of symptoms was January 26, 2018. Risk Assessment: Do you want to hurt yourself or someone else? Patient reports desire/thoughts of hurting themselves or someone else. Provider notified. Initial Sepsis Screen: Does the patient meet any 2 criteria? No. Patient's initial sepsis screen is negative. Does the patient have a suspected source of infection? No. Patient's initial sepsis screen is negative. Care prior to arrival: None. 06:05 Method Of Arrival: EMS: [facility] ea 06:05 Acuity: NATALIA 2 ea Triage Assessment: 06:11 General: Appears in no apparent distress. Behavior is calm. Pain: Complains of pain in ea anterior aspect of right lateral abdomen Pain does not radiate. Quality of pain is described as aching. Neuro: Level of Consciousness is awake, alert, obeys commands, Oriented to person, place, time, situation. Cardiovascular: Patient's skin is warm and dry. Respiratory: Airway is patent Respiratory effort is even, unlabored, Respiratory pattern is regular, symmetrical, Breath sounds are clear bilaterally. GI: Abdomen is non-distended. Derm: Skin is pink, warm \\T\\ dry. Historical: - Allergies: 06:11 Clindamycin; ea - Home Meds: 06:11 hydrochlorothiazide 25 mg Oral tab 1 tab 2 times per day for Hypertension [Active]; ea lisinopril Oral [Active]; Novolin N Sub-Q [Active]; Trileptal 600 mg oral tab 1 tab 2 times per day [Active]; - PMHx: 06:11 Diabetes - IDDM; Hypertension; ea - Immunization history:: Adult Immunizations up to date. - Social history:: Smoking status: Patient/guardian denies using tobacco. - Ebola Screening: : No symptoms or risks identified at this time. Screenin:14 Abuse screen: Denies threats or abuse. Nutritional screening: No deficits noted. ea Tuberculosis screening: No symptoms or risk factors identified. Fall Risk None identified. Assessment: 06:43 Reassessment: Edi from poison control notified of possible OD, acetaminophen, aspirin, ea UDS, IV fluids, pt may get charcoal, if seizures occur pt may get benzodiazepines. May discharge once labs are cleared if no other issues occur. 07:15 General: Appears in no apparent distress. comfortable, well developed, Behavior is sv calm, cooperative, appropriate for age. General: Denies suicidal ideation. Pt stated he doesn't recall how many pills he took. Pt stated "I just wanted to sleep." Pt denies any previous attempts at attempting suicide. Pt reports depression. Pain: Denies pain. Neuro: Level of Consciousness is awake, alert, obeys commands, Oriented to person, place, time, situation, Moves all extremities. Full function Speech is normal. Cardiovascular: Patient's skin is warm and dry. Respiratory: Respiratory effort is even, unlabored, Respiratory pattern is regular, symmetrical. GI: No signs and/or symptoms were reported involving the gastrointestinal system. : No signs and/or symptoms were reported regarding the genitourinary system. EENT: No signs and/or symptoms were reported regarding the EENT system. Derm: Skin is pink, warm \\T\\ dry. Musculoskeletal: No signs and/or symptoms reported regarding the musculoskeletal system. 07:30 Reassessment: Personal belongings given to security for lock up. sv 08:41 Reassessment: Patient appears in no apparent distress at this time. Patient and/or sv family updated on plan of care and expected duration. Pain level reassessed. Patient is alert, oriented x 3, equal unlabored respirations, skin warm/dry/pink. Pt given a food tray. 09:36 Reassessment: Patient appears in no apparent distress at this time. Patient and/or sv family updated on plan of care and expected duration. Pain level reassessed. Patient is alert, oriented x 3, equal unlabored respirations, skin warm/dry/pink. 10:49 Reassessment: Patient appears in no apparent distress at this time. No changes from la1 previously documented assessment. Patient and/or family updated on plan of care and expected duration. Pain level reassessed. Patient is alert, oriented x 3, equal unlabored respirations, skin warm/dry/pink. 13:28 Reassessment: Patient appears in no apparent distress at this time. No changes from la1 previously documented assessment. Patient and/or family updated on plan of care and expected duration. Pain level reassessed. Patient is alert, oriented x 3, equal unlabored respirations, skin warm/dry/pink. Psych: 06:09 Subjective: Patient's mood is sad. Objective: Patient is cooperative. Interventions: ea Searched person for dangerous items. Suicide Risk Assessment: Sad Person Scale: Sex of patient: Male: Score 1 point. Age of patient: Score 0 point if patient falls outside of specified age parameters. Depression: Score 1 point if signs of depression are present. Previous Attempt: Score 0 point if patient has not previously attempted suicide. Rational Thinking: Score 0 point if patient has rational thinking. Social Support: Score 1 point if social support is lacking and/or unavailable. Organized Plan: Score 0 if patient did not have an organized plan in place. Relationship: Score 1 point if patient is , , , or for a single male Chronic Sickness: Score 0 point if patient does not have a chronic illness, debilitating, or severe disorder. Safety Checks: Door is open. Pt denies substance abuse. 14:31 Commitment: Patient will be a voluntary commitment. la1 Vital Signs: 06:00 BP 129 / 82; Pulse 85; Resp 18; Temp 98.7; Pulse Ox 98% on R/A; oe 09:25 BP 133 / 64; Pulse 85; Resp 18; Pulse Ox 100% ; ms 12:20 BP 130 / 72; Pulse 82; Resp 15; Temp 98.2(O); Pulse Ox 98% on R/A; mh5 13:28 BP 143 / 74; Pulse 81; Resp 16; Pulse Ox 100% on R/A; la1 ED Course: 05:59 Patient arrived in ED. aa1 06:00 Patient placed in an exam room, on a stretcher. ea 06:05 Alma Sharma RN is Primary Nurse. ea 06:09 [facility]ona Delgado F[facility]-C [facility]. kb 06:09 Favian Case MD is Attending Physician. kb 06:09 Triage completed. ea 06:14 Patient has correct armband on for positive identification. Bed in low position. Call ea light in reach. Side rails up X 1. 06:53 Inserted saline lock: 20 gauge in right antecubital area, using aseptic technique. oe Blood collected. 07:00 Safety Checks: Personal items have been removed. The door is open or patient has been sv placed in a hallway bed/chair. There are no family/friend visitors at this time Sitter present at this time. 07:03 Primary Nurse role handed off by Alma Sharma, GANESH sv 07:03 Maryse Boyce, GANESH is Primary Nurse. sv 07:15 Safety Checks: Personal items have been removed. The door is open or patient has been sv placed in a hallway bed/chair. There are no family/friend visitors at this time Sitter present at this time. 07:20 Report given to Maryse ANDERSEN. ea 07:21 Safety checks: Sitter present: Yes. Safety checks: Items removed: yes. Door open/sign eb placed on door: yes. 07:36 Safety checks: Door open/sign placed on door: yes. Sitter present: Yes. eb 07:51 Safety checks: Door open/sign placed on door: yes. Sitter present: Yes. eb 08:05 Safety checks: Door open/sign placed on door: yes. Sitter present: Yes. eb 08:15 Safety checks: Door open/sign placed on door: yes. Sitter present: Yes. eb 08:30 Safety checks: Door open/sign placed on door: yes. Sitter present: Yes. eb 08:45 Safety checks: Door open/sign placed on door: yes. Sitter present: Yes. eb 08:45 Safety checks: Items removed: yes. Door open/sign placed on door: yes. Family/friend ms present: no. Sitter present: Yes. 09:00 Safety checks: Items removed: yes. Door open/sign placed on door: yes. Family/friend ms present: no. Sitter present: Yes. 09:15 Safety checks: Items removed: yes. Door open/sign placed on door: yes. Family/friend ms present: no. Sitter present: Yes. 09:25 Repeat lab(s) drawn. by me, sent to lab. ms 09:27 Warm blanket given. ms 09:30 Safety checks: Items removed: yes. Door open/sign placed on door: yes. Family/friend ms present: no. Sitter present:. 09:45 Safety checks: Items removed: yes. Door open/sign placed on door: yes. Family/friend ms present: no. Sitter present: Yes. 10:00 Safety checks: Items removed: yes. Door open/sign placed on door: yes. Family/friend ms present: no. Sitter present: Yes. 10:15 Safety checks: Items removed: yes. Door open/sign placed on door: yes. Family/friend ms present: no. Sitter present: Yes. 10:30 Safety checks: Items removed: yes. Door open/sign placed on door: yes. Family/friend ms present: no. Sitter present: Yes. 10:45 [facility] contacted to request patient screening. Rep: Bhumi. mb 10:45 Safety checks: Items removed: yes. Door open/sign placed on door: yes. Family/friend ms present: no. Sitter present: Yes. 11:00 Safety checks: Items removed: yes. Door open/sign placed on door: yes. Family/friend ms present: no. Sitter present: Yes. 11:15 Safety checks: Items removed: yes. Door open/sign placed on door: yes. Family/friend ms present: no. Sitter present: Yes. 11:30 Safety checks: Items removed: yes. Door open/sign placed on door: yes. Family/friend mh5 present: no. Sitter present: Yes. 11:45 Safety checks: Items removed: yes. Door open/sign placed on door: yes. Family/friend mh5 present: no. Sitter present: Yes. 12:00 Safety checks: Items removed: yes. Door open/sign placed on door: yes. Family/friend mh5 present: no. Sitter present: Yes. 12:15 Safety checks: Items removed: yes. Door open/sign placed on door: yes. Family/friend mh5 present: no. Sitter present: Yes. 12:18 Diet: Patient given a regular meal tray. mh5 12:29 Anote from [facility] verified that a customer care representative was en route to perform a patient mb4 screening. 12:30 Safety checks: Items removed: yes. Door open/sign placed on door: yes. Family/friend mh5 present: no. Sitter present: Yes. 12:45 Safety checks: Items removed: yes. Door open/sign placed on door: no. Family/friend jp3 present: no. Sitter present: Yes. 12:46 Door closed. Lights dimmed. Curtain remained open. jp3 13:00 Safety checks: Items removed: yes. Door open/sign placed on door: no. Other: Curtain is jp3 open Family/friend present: no. Sitter present: Yes. 13:15 Safety checks: Items removed: yes. Door open/sign placed on door: no. Other: Curtain jp3 remains open Family/friend present: no. Sitter present: Yes. 13:30 Safety checks: Items removed: yes. Door open/sign placed on door: yes. Family/friend jp3 present: no. Sitter present: Yes. 13:45 Safety checks: Items removed: yes. Door open/sign placed on door: yes. Family/friend jp3 present: no. Sitter present: Yes. 14:00 Safety checks: Items removed: yes. Door open/sign placed on door: yes. Family/friend jp3 present: no. Sitter present: Yes. 14:00 Human Anatomy Teacher from [facility] spoke with patient. jp3 14:15 Safety checks: Items removed: yes. Door open/sign placed on door: yes. Family/friend jp3 present: no. Sitter present: Yes. 14:26 IV discontinued, intact, bleeding controlled, No redness/swelling at site. Pressure jp3 dressing applied. 14:28 Safety checks: Items removed: yes. Door open/sign placed on door: yes. Family/friend jp3 present: no. Sitter present: Yes. 14:30 IV discontinued, intact, bleeding controlled, No redness/swelling at site. Pressure la1 dressing applied. 14:31 No provider procedures requiring assistance completed. la1 Administered Medications: 07:15 Drug: Charcoal Suspension 50 grams Route: PO; ea 07:59 Follow up: Response: No adverse reaction sv 08:05 Drug: NS 0.9% 1000 ml Route: IV; Rate: 1000 ml; Site: right antecubital; sv 09:05 Follow up: IV Status: Completed infusion la1 Outcome: 14:18 Discharge ordered by MD. ogden 14:31 Discharged to home ambulatory. la1 14:31 Condition: stable 14:31 Discharge instructions given to patient, Instructed on discharge instructions, follow up and referral plans. Demonstrated understanding of instructions, follow-up care. 14:31 Patient left the ED. la1 Signatures: Lona Delgado, SOW FARM TECHNICIAN-C SOW FARM TECHNICIAN-Maryse Zavaleta, RN RN Mary Machuca RN RN aa1 Solis, Maria ms Attema, Lee RN RN la1 Jeanmarie Lees Maria [facility] Alma Sharma RN RN ea Botello, Elizabeth eb Pisarski, Jacob jp3 Caro Lyon4 Corrections: (The following items were deleted from the chart) 10:38 10:16 Safety checks: Items removed: yes. Door open/sign placed on door: yes. ms Family/friend present: no. Sitter present: Yes. ms
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
--- NOTE | 2018-01-27 08:36 | EKG ---
Test Date: 2018-01-26 Test Time: 06:35:03 Harness Brusher: MARITZA MEASUREMENT RESULTS: Intervals: Rate: 75 AR: 128 QRSD: 98 QT: 376 QTc: 419 [place]: P: 56 AR: 128 QRS: 21 T: 28 INTERPRETIVE STATEMENTS: Normal sinus rhythm Normal ECG Compared to ECG 05/20/2013 18:20:42 No significant changes Electronically Signed On 01-27-18 08:35:27 CDT by Arron Arroyo
== END 2018-01-26 14:31 | disposition home or self-care (01) ==
LOC: ER 05:57
DX: F43.21 Adjustment disorder with depressed mood (principal); F31.9 Bipolar disorder, unspecified; I10 Essential (primary) hypertension; E11.9 Type 2 diabetes mellitus without complications
CPT/HCPCS: 36415; 80048; 80076; 80307 ×8; 80320 ×2; 80329 ×2; 81003; 85025; 85610; 85730; 93005; 96360; 99285; J7030